=== PATIENT | female | born 1985 | race Caucasian/White ===

== ENCOUNTER 2016-07-23 18:32 | Emergency (ER) | payer MEDICAID ==
[~2016-07-23] VITALS: Ht 154.9 cm; Wt 62.6 kg
[2016-07-23 18:39] VITALS: BP 113/66
--- NOTE | 2016-07-23 19:58 | NUR ---
TO ER OF3
--- NOTE | 2016-07-23 20:11 | NUR ---
31 Y/O F W/C/O R SHOULDER AND ARM PAIN S/P FALL X 1 DAY. PT DENIES LOC, ALERT AND ORIENTED X 4, NO S/S OF DISTRESS NOTED AT THE MOMENT. ER MD MADE AWARE.
[2016-07-23] MEDS ORDERED: KETOROLAC 60 MG/2 ML VIAL IM ONE (20:20)
[2016-07-23 20:52] VITALS: BP 113/69
--- NOTE | 2016-07-23 20:52 | NUR ---
Patient discharged with v/s stable. Written and verbal after care instructions given and explained. Patient alert, oriented and verbalized understanding of instructions. Ambulatory with to car. All questions addressed prior to discharge. ID band removed. Patient advised to follow up with PMD THIS WK OR RETURN TO ER IF CONDITION WORSENS. Rx of MOTRIN 800MG given. Patient educated on indication of medication including possible reaction and side effects. Opportunity to ask questions provided and answered.
== END 2016-07-23 20:52 | disposition home or self-care (01) ==
LOC: MED 18:32
DX: S43.402A Unspecified sprain of left shoulder joint, initial encounter (principal); W01.0XXA Fall on same level from slipping, tripping and stumbling without subsequent striking against object, initial encounter; Y93.89 Activity, other specified; Y92.89 Other specified places as the place of occurrence of the external cause; Y99.8 Other external cause status
CPT/HCPCS: 73030; 96372; 99284; J1885

== ENCOUNTER 2017-12-02 09:03 | Emergency (ER) | payer MEDICAID ==
[~2017-12-02] VITALS: Ht 160 cm; Wt 66.2 kg
[2017-12-02 09:17] VITALS: BP 119/77
--- NOTE | 2017-12-02 09:17 | NUR ---
Patient ambulated to bed 9. RN evaluating patient at bedside.
--- NOTE | 2017-12-02 09:20 | NUR ---
32 YO FEMALE BIB SELF FOR ABDOMINAL PAIN AND HEADACHE. PT SKIN IS PINK/WARM/DRY; AAOX4 WITH EVEN AND STEADY GAIT; PATIENT STATES PAIN OF 8/10 AT THIS TIME; VSS; PATIENT POSITIONED FOR COMFORT; HOB ELEVATED; BEDRAILS UP X1; BED DOWN. ER MD MADE AWARE OF PT STATUS.
--- NOTE | 2017-12-02 09:39 | NUR ---
Dr. Joseph evaluating patient at bedside.
[2017-12-02] MEDS ORDERED: KETOROLAC 60 MG/2 ML VIAL IM ONE (09:50)
[2017-12-02 10:16] VITALS: BP 120/81
== END 2017-12-02 10:16 | disposition home or self-care (01) ==
LOC: MED 09:03
DX: R51 Headache (principal)
CPT/HCPCS: 96372; 99283; J1885

== ENCOUNTER 2018-06-17 21:22 | Emergency (ER) | payer MEDICAID ==
[~2018-06-17] VITALS: Ht 154.9 cm; Wt 58.1 kg
[2018-06-17 21:29] VITALS: BP 109/76
--- NOTE | 2018-06-17 21:34 | NUR ---
PT AMBULATORY TO ER LOBBY W/ STEADY GAIT IN STABLE CONDITION.
--- NOTE | 2018-06-17 21:53 | NUR ---
PT TAKEN TO BED 11
--- NOTE | 2018-06-17 22:09 | NUR ---
33 YO F BIB SELF CO SORE THROAT AND BRANDT X 3 DAYS. DENIES N/V/D, COUGH, FEVERS. -- PMH: DENIES -- RX: SELF MEDICATING WITH PCN PT POSITIONED FOR COMFORT, HOB ELEVATED, SIDE RAIL UP X 1, BED IN LOWEST POSITION, NO APPARENT DISTRESS, VSS.
[2018-06-17] MEDS ORDERED: KETOROLAC 30 MG/ML VIAL IVP ONE (22:20)
[2018-06-17] MEDS ORDERED: ONDANSETRON 4 MG/2 ML VIAL IVP ONE (22:20)
[2018-06-17] MEDS ORDERED: NACL 0.9% 1,000 ML IV ONE (22:20)
[2018-06-17 22:44] LABS: BASOPHILS % (AUTO) 0.3 % (0.0-2.0); EOSINOPHILS % (AUTO) 0.3 % (0.0-4.0); HEMATOCRIT 41.4 % (36-48); HEMOGLOBIN 13.9 g/dL (12.0-16.0); MEAN CORPUSCULAR HEMOGLOBIN 30 pg (27-31); MEAN CORPUSCULAR HGB CONC 34 g/dL (33-37); MEAN CORPUSCULAR VOLUME 89.3 fL (80-94); MONOCYTES # (AUTO) 0.7 K/uL (0.8-1.0); NEUTROPHILS # (AUTO) 12.1 K/uL (1.8-7.7); NEUTROPHILS % (AUTO) 87.3 % (42.2-75.2); PLATELET COUNT (AUTO) 231 K/uL (140-450); RED BLOOD CELL COUNT(AUTO) 4.64 MIL/uL (4.20-5.40); WHITE BLOOD COUNT (AUTO) 13.8 K/uL (4.8-10.8)
[2018-06-17 22:58] LABS: ALBUMIN 3.6 g/dL (3.4-5.0); ANION GAP 13.5 (8-16); CARBON DIOXIDE 25.3 mmol/L (21-32); CREATININE 0.8 mg/dL (0.6-1.3); POTASSIUM 3.8 mmol/L (3.5-5.1); TOTAL BILIRUBIN 0.7 mg/dL (0.0-1.0)
[2018-06-17 23:02] LABS: LYMPHOCYTES % (AUTO) 7.1 % (20.5-51.1)
[2018-06-17 23:58] VITALS: BP 107/65
--- NOTE | 2018-06-17 23:58 | NUR ---
Patient discharged with v/s stable. Written and verbal after care instructions given and explained. Patient alert, oriented and verbalized understanding of instructions. Ambulatory with steady gait. All questions addressed prior to discharge. ID band removed. IV discontinued. Patient advised to follow up with PMD. Rx of Motrin, Amoxicillin, and Promethazine given. Patient educated on indication of medication including possible reaction and side effects. Opportunity to ask questions provided and answered.
== END 2018-06-17 23:58 | disposition home or self-care (01) ==
LOC: MED 21:22
DX: J02.8 Acute pharyngitis due to other specified organisms (principal); B96.89 Other specified bacterial agents as the cause of diseases classified elsewhere
CPT/HCPCS: 36415; 80053; 85025; 87081; 87804; 96361; 96374; 96375; 99283; J1885; J2405; J7030

== ENCOUNTER 2018-11-14 12:49 | Emergency (ER) | payer MEDICAID ==
[~2018-11-14] VITALS: Ht 154.9 cm; Wt 65.4 kg
[2018-11-14 13:14] VITALS: BP 115/88
--- NOTE | 2018-11-14 13:39 | NUR ---
C/O GENERALIZED WEAKNESS OFF AND ON X 1 MTH, 8/10 HEADACHE, DIARRHEA X TODAY, EAR RIGHT PAIN X 1 WEEK. HEADACHE PAIN IS HER GREATEST CONCERN NOW. TOOK IBUPROFEN TO NO RELIEF. HEADACHE PAIN INCREASED AND DECREASES. STATES IT FEELS BAND LIKE. NO NAUSEA. NO VISION CHANGES. STATES FEVER A FEW DAYS AGO AND DIARRHEA TODAY. DECREASED ENERGY. REPORTS MILD SORE THROAT AND DRY COUGH. RIGHT TM IS OPAQUE, NO ERYTHEMA. PERRLA. TENDER ANT CERV LYMPH NODES. PT STS " I THINK ITS MY DEPo SHOT." PAIN 10/30 LMP 07/21/18 HX-0 MEDS-NONE NKA
[2018-11-14] MEDS ORDERED: KETOROLAC 30 MG/ML VIAL IM ONE (16:05)
[2018-11-14 16:14] VITALS: BP 129/78
--- NOTE | 2018-11-14 16:14 | NUR ---
Patient discharged with v/s stable. Written and verbal after care instructions given and explained. Patient alert, oriented and verbalized understanding of instructions. Ambulatory with steady gait. All questions addressed prior to discharge. ID band removed. Patient advised to follow up with PMD. Rx of NAPROSYN AND LOPERAMIDE given. Patient educated on indication of medication including possible reaction and side effects. Opportunity to ask questions provided and answered.
== END 2018-11-14 16:14 | disposition home or self-care (01) ==
LOC: MED 12:49
DX: R51 Headache (principal); R19.7 Diarrhea, unspecified; Z98.890 Other specified postprocedural states
CPT/HCPCS: 70450; 81002; 96372; 99284; J1885

== ENCOUNTER 2023-06-01 08:27 | Emergency (ER) | payer MEDICAID, OTHER ==
[~2023-06-01] VITALS: Ht 152.4 cm; Wt 69.2 kg
[2023-06-01 08:53] VITALS: BP 113/74; PULSE 82; RESP 20; TEMP 97.8; O2SAT 99
[2023-06-01 10:06] LABS: BILIRUBIN,URINE NEGATIVE (NEGATIVE); BLOOD, URINE TRACE-I (NEGATIVE); COLOR,URINE YELLOW (YELLOW); LEUKOCYTE ESTERASE ,URINE 1+ (NEGATIVE); PROTEIN,URINE NEGATIVE (NEGATIVE); UGLUCOSE NEGATIVE (NEGATIVE); UROBILINOGEN,URINE 0.2 EU/dL (0.2 - 1)
[2023-06-01 10:28] LABS: BASOPHILS # (AUTO) 0.1 K/uL (0.00-0.22); BASOPHILS % (AUTO) 0.9 % (0.0-2.0); EOSINOPHILS # (AUTO) 0.3 K/uL (0-0.4); EOSINOPHILS % (AUTO) 2.8 % (0.0-4.0); HEMATOCRIT 38.1 % (36-48); HEMOGLOBIN 12.9 g/dL (12.0-16.0); LYMPHOCYTES # (AUTO) 1.6 K/uL (2.5-16.5); LYMPHOCYTES % (AUTO) 16.9 % (20.5-51.1); MEAN CORPUSCULAR HEMOGLOBIN 28 pg (27-31); MEAN CORPUSCULAR HGB CONC 34 g/dL (33-37); MONOCYTES # (AUTO) 0.5 K/uL (0.8-1.0); MONOCYTES % (AUTO) 5.1 % (1.7-9.3); NEUTROPHILS # (AUTO) 7.2 K/uL (1.8-7.7); NEUTROPHILS % (AUTO) 74.3 % (42.2-75.2); PLATELET COUNT (AUTO) 275 K/uL (140-450); RED BLOOD CELL COUNT(AUTO) 4.54 MIL/uL (4.20-5.40); RED CELL DISTRIBUTION WIDTH 14.4 % (11.6-13.7); WHITE BLOOD COUNT (AUTO) 9.7 K/uL (4.8-10.8)
[2023-06-01] MEDS: KETOROLAC 60 MG/2 ML VIAL IM ONE (10:38)
[2023-06-01 10:42] LABS: CREATININE 0.7 mg/dL (0.6-1.3); POTASSIUM 3.7 mmol/L (3.5-5.1)
[2023-06-01 10:50] LABS: ALBUMIN 3.2 g/dL (3.4-5.0); BILIRUBIN,DIRECT 0.1 mg/dL (0.0-0.3); TOTAL BILIRUBIN 0.5 mg/dL (0.0-1.0); TOTAL PROTEIN, SERUM 8.8 g/dL (6.4-8.2)
[2023-06-01 10:56] LABS: BACTERIA,URINE 1+ /HPF (None Seen); RBC,URINE 0-5 /HPF (0-5)
[2023-06-01 10:57] LABS: APPEARANCE,URINE HAZY (CLEAR); NITRITE, URINE POSITIVE (NEGATIVE); SQUAMOUS EPITHELIAL CELL,UR 4-10 (MOD) /LPF (0-3 (FEW))
[2023-06-01] MEDS ORDERED: cefTRIAXone 500 MG VIAL ONE (10:58)
[2023-06-01] MEDS ORDERED: LIDOCAINE MPF 1% 5 ML ONE (10:58)
[2023-06-01] MEDS: cefTRIAXone 500 MG in LIDOCAINE MPF 1% 1 ML IM ONE (11:18)
[2023-06-01 11:54] LABS: ANION GAP 13.6 (8-16); CALCIUM 9.2 mg/dL (8.5-10.1); CARBON DIOXIDE 24.1 mmol/L (21-32)
[2023-06-01] MEDS ORDERED: DOXY-690 PO (12:24)
[2023-06-01] MEDS ORDERED: IBUP-2213 PO (12:24)
[2023-06-01 13:18] VITALS: BP 109/69; PULSE 78; RESP 17; TEMP 36.55848; O2SAT 99
[2023-06-03] MEDS ORDERED: CIPR500T4 PO (11:39)
== END 2023-06-01 13:18 | disposition home or self-care (01) ==
LOC: MED 08:27
DX: N72 Inflammatory disease of cervix uteri (principal); Z79.899 Other long term (current) drug therapy
CPT/HCPCS: 36415; 76856; 80048; 80076; 81001; 81025; 83690; 85025; 87086; 87210; 87491; 96372; 99285; J0696; J1885; J2001; Q0092